=== PATIENT | female | born 1985 ===

== ENCOUNTER → 2022-01-25 | Outpatient (CLI) | payer OTHER | END | disposition home or self-care (01) | LOC: RX STUDY 08:48 | PROVIDERS: ATTEND Obstetrics & Gynecology Reproductive Endocrinology | DX: N91.2 Amenorrhea, unspecified (principal); N93.9 Abnormal uterine and vaginal bleeding, unspecified; Q50.6 Other congenital malformations of fallopian tube and broad ligament ==

== ENCOUNTER 2022-04-13 08:20 | Outpatient (CLI) | payer OTHER | END 2022-04-13 08:21 | disposition home or self-care (01) | LOC: SONOGRAMA 08:20 | PROVIDERS: ATTEND Obstetrics & Gynecology Reproductive Endocrinology | DX: N93.8 Other specified abnormal uterine and vaginal bleeding (principal) ==

== ENCOUNTER 2022-06-10 11:28 | Day surgery (SDC) | payer OTHER ==
[~2022-06-10] VITALS: Ht 175.3 cm; Wt 72.6 kg
[~2022-06-10 11:28] MED LIST: PROAIR RESPICL90 MCG IH
[2022-06-10] MEDS ORDERED: NAPROXEN SODIU550 MG PO (18:32)
== END 2022-06-10 21:30 | disposition home or self-care (01) ==
LOC: CIR.AMB 11:28
PROVIDERS: ATTEND Obstetrics & Gynecology
DX: N84.0 Polyp of corpus uteri (principal); Z20.822 Contact with and (suspected) exposure to COVID-19; J45.909 Unspecified asthma, uncomplicated

== ENCOUNTER 2023-08-01 08:52 | Outpatient (CLI) | payer OTHER ==
[~2023-08-01 08:52] MED LIST changes: +NAPROXEN SODIU550 MG PO
== END 2023-08-01 09:06 | disposition home or self-care (01) ==
LOC: SONOGRAMA 08:52
DX: Z34.01 Encounter for supervision of normal first pregnancy, first trimester (principal); R10.2 Pelvic and perineal pain